=== PATIENT | female | born 1960 | race Caucasian/White ===

== ENCOUNTER 2018-06-09 22:49 | Emergency (ER) | payer MEDICARE, MEDICAID ==
[~2018-06-09] VITALS: Ht 162.6 cm; Wt 56.7 kg
[~2018-06-09 22:49] MED LIST: BACTRIM DS TAB1 EAC1 ORAL; CLINDAMYCIN HC300 MG ORAL; LORAZEPAM1 MG ORAL; LOVENOX30 MG/0.3 SQ; LOXAPINE25 M1 PO; RESTORIL15 MG ORAL; TOPIRAMATE25 MG ORAL; TYLENOL325 MG ORAL
[2018-06-09] MEDS ORDERED: DEPAKOTE125 MG PO (22:54)
[2018-06-09] MEDS ORDERED: RISPERDAL1 MG/1 ML PO (22:54)
[2018-06-09 23:00] VITALS: BP 109/64
--- NOTE | 2018-06-09 23:00 | NUR ---
ED Nurse Note: Pt was BIBA from SNF. C/o rectal prolapsed today. Pt is awake, confused. Examed rectal area which no any prolase was found at this time. Vital signs stable, waiting for orders.
--- NOTE | 2018-06-09 23:12 | NUR ---
Spoke with Laquita at [facility]-aware of patients return back home. Spoke with Trupti at [facility]- ETA-15-20 min.
[2018-06-09] MEDS ORDERED: ANUSOL-HC25 MG RECTAL (23:41)
[2018-06-09 23:43] VITALS: BP 109/64
--- NOTE | 2018-06-09 23:43 | NUR ---
TRANSFER TO SNF: Patient transferred to as ordered. Report given to Laquita at [facility]. Belongings and package sent with EMS.
--- NOTE | 2018-06-10 01:21 | Emergency Room Report ---
History of Present Illness General Chief Complaint: General Complaint Source: Medical Record, EMS Present Illness HPI 57-year-old female presents ED for evaluation. Patient brought in by EMS from [facility] facility. Nursing staff at facility states that patient has possible rectal prolapse versus hemorrhoids. Noticed today by nursing staff. Patient has history of dementia and site. Is unable to provide any additional history at this time. No signs of distress. No other aggravating relieving factors. No other associated symptoms Allergies: Coded Allergies: No Known Allergies (Unverified , 07/05/14) Patient History Past Medical History: HTN, dementia, psych hx Past Surgical History: none Pertinent Family History: none Social History: Denies: smoking, alcohol use, drug use Last Menstrual Period: UNK Now: No - unk Immunizations: UTD Reviewed Nursing Documentation: PMH: Agreed; PSxH: Agreed Nursing Documentation-PMH Hx Hypertension: Yes Hx Cancer: No Hx Gastrointestinal Problems: No Hx Neurological Problems: No Review of Systems All Other Systems: negative except mentioned in HPI Physical Exam Vital Signs Date Time Temp Pulse Resp B/P (MAP) Pulse Ox O2 Delivery O2 Flow Rate FiO2 06/09/18 22:48 97.5 64 18 116/68 91 Room Air Sp02 EP Interpretation: reviewed, normal General Appearance: other - nonverbal Head: normocephalic ENT: normal ENT inspection Neck: normal inspection Respiratory: chest non-tender, lungs clear, normal breath sounds, speaking full sentences Cardiovascular #1: regular rate, rhythm, no edema Gastrointestinal: normal bowel sounds, non tender, soft, non-distended, no guarding, no rebound Rectal: other - no evidence of rectal prolapse or external hemorrhoids Genitourinary: no CVA tenderness Neurologic: other - nonverbal Psychiatric: other - nonverbal Skin: normal inspection Lymphatic: normal inspection Medical Decision Making Diagnostic Impression: Primary Impression: Rectal pain ER Course Hospital Course 57 yo F presents with possible rectal prolapse, hemorrhoids Differential diagnoses include: internal hemorrhoids, external hemorrhoids, anal fissure, constipation Clinical course Patient placed on stretcher in ED. After initial history physical exam reveals a female in no acute distress. Upon rectal exam there is good rectal tone. There is no evidence of external hemorrhoid or prolapse rectum. Possible consideration for internal hemorrhoids. No rectal bleeding. No emergent indication for imaging or further evaluation at this time. Patient can be safely discharged back to [facility] facility. We'll provide surgical referral if there is future evidence of external hemorrhoids or prolapsed rectum Diagnosis - rectal pain Stable and discharged to SNF with prescription for Anusol suppository. Instructed to take warm soaks in top 3 times a day for 10-15 minutes. Patient instructed to followup with PMD. Patient instructed to return to ED if symptoms recur or worsen Last Vital Signs Date Time Temp Pulse Resp B/P (MAP) Pulse Ox O2 Delivery O2 Flow Rate FiO2 06/09/18 23:43 97.5 64 18 109/64 96 Room Air Status: improved Disposition: XFER SNF Condition: Stable Scripts Hydrocortisone Acetate* (ANUSOL-HC*) 25 Mg Supp.rect 1 SUPP RECTAL TWICE A DAY, #10 SUPP Prov: Cory Linn MD 06/09/18 Referrals: Antony Fernando Patient Instructions: Hemorrhoids, [id number] Cory Linn MD Jun 10, 2018 01:21
== END 2018-06-09 23:43 ==
LOC: EDBD 22:49 → EMR 23:05
DX: K62.89 Other specified diseases of anus and rectum (principal); I10 Essential (primary) hypertension; F03.90 Unspecified dementia, unspecified severity, without behavioral disturbance, psychotic disturbance, mood disturbance, and anxiety
CPT/HCPCS: 99283